=== PATIENT | female | born 1980 ===

== ENCOUNTER 2019-06-11 08:14 | Emergency (ER) | payer MEDICAID ==
[~2019-06-11] VITALS: Ht 154.9 cm; Wt 76.0 kg
[~2019-06-11 08:14] MED LIST: ALBU18HF INH; BUPR100T6 PO
--- NOTE | 2019-06-11 08:31 | NUR ---
PT PRESENTS TO ED C/O N/V/D AND ABD PAIN STARTING LAST SAT. PT STATES SHE IS UNABLE TO TOLERATE FOODS OR FLUIDS WITHOUT VOMITING. PT HAS HX OF ABD SX AND TWISTING BOWELS. PT AMBULATORY TO BATHROOM WITH STEADY GAIT FOR URINE SAMPLE. BACK TO ROOM. RESTING ON GURNEY. CALL LIGHT IN REACH. WARM BLANKET PROVIDED. AWAITING MD FOR ORDERS.
[2019-06-11] MEDS ORDERED: ONDANSETRON 2MG/ML, 2ML IVPush ONE (09:00)
[2019-06-11] MEDS ORDERED: SODIUM CHLORIDE 0.9% 1,000ML IVBOLUS ONE (09:00)
[2019-06-11] MEDS ORDERED: SODIUM CHLORIDE FLUSH 10ML SYR IVF ONE (09:00)
[2019-06-11] MEDS ORDERED: ONDANSETRON 2MG/ML, 2ML ONE (09:59)
[2019-06-11 10:06] LABS: BASOPHILS # (AUTO) 0.01 x10^3/uL (0-0.1); BASOPHILS % (AUTO) 0 % (0-1); EOSINOPHILS # (AUTO) 0.09 x10^3/uL (0-0.4); EOSINOPHILS % (AUTO) 2 % (1-7); LYMPHOCYTES # (AUTO) 1.48 x10^3/uL (1-3.4); LYMPHOCYTES % (AUTO) 28 % (22-44); MD NO; MEAN CORPUSCULAR HEMOGLOBIN 31.7 pg (27.0-34.8); MEAN CORPUSCULAR HGB CONC 33.7 g/dL (32.4-35.8); MEAN CORPUSCULAR VOLUME 94.1 fL (80-100); MONOCYTES # (AUTO) 0.29 x10^3/uL (0.2-0.8); MONOCYTES % (AUTO) 6 % (2-9); NEUTROPHILS # (AUTO) 3.39 x10^3/uL (1.8-6.8); NEUTROPHILS % (AUTO) 64 % (42-75); PLATELET COUNT 226 x10^3/uL (130-400); RED BLOOD COUNT 5.06 x10^6/uL (3.82-5.3); RED CELL DISTRIBUTION WIDTH 13.1 % (9.6-15.2)
[2019-06-11 10:16] LABS: ALANINE AMINOTRANSFERASE 24 U/L (12-78); ALBUMIN 4.3 g/dL (3.4-5.0); ANION GAP 7 mmol/L (5-15); CALCIUM 8.2 mg/dL (8.5-10.1); CHLORIDE 106 mmol/L (98-107)
[2019-06-11 10:18] LABS: ALKALINE PHOSPHATASE 109 U/L (45-117); BILIRUBIN,TOTAL 0.5 mg/dL (0.2-1.0); TOTAL PROTEIN 8.4 g/dL (6.4-8.2)
[2019-06-11 10:53] LABS: MICROSCOPIC INDICATED
[2019-06-11 10:59] LABS: HCG UR SG 1.032 (1.003-1.030)
[2019-06-11 11:09] LABS: CULTURE INDICATED? NO
[2019-06-11] MEDS ORDERED: KETOROLAC 30 MG/1 ML ONE (11:17)
[2019-06-11] MEDS ORDERED: KETOROLAC 30 MG/1 ML IVPush ONE (11:30)
--- NOTE | 2019-06-11 12:03 | NUR ---
RECEIVED REPORT FROM AUDREY MARIO. ASSUMING CARE AT THIS TIME.
[2019-06-11 12:06] VITALS: BP 112/77
--- NOTE | 2019-06-11 12:06 | NUR ---
PT TAKEN TO CT
[2019-06-11] MEDS ORDERED: OMNIPAQUE 350 MG/ML, 100ML BOTTLE ONE (12:29)
== END 2019-06-11 13:06 | disposition home or self-care (01) ==
LOC: ED 10:58
DX: K52.9 Noninfective gastroenteritis and colitis, unspecified (principal); Z90.49 Acquired absence of other specified parts of digestive tract
CPT/HCPCS: 36415; 74177; 80053; 81001; 81025; 83605; 85025; 96361; 96374; 96375; 99284; J1885; J2405; J7030; Q9967

== ENCOUNTER 2019-08-27 07:56 | Emergency (ER) | payer MEDICAID ==
[~2019-08-27] VITALS: Ht 157.5 cm; Wt 79.2 kg
[2019-08-27 08:13] VITALS: BP 119/79
== END 2019-08-27 09:43 | disposition home or self-care (01) ==
LOC: ED 09:00
DX: L04.0 Acute lymphadenitis of face, head and neck (principal); L01.00 Impetigo, unspecified; J45.909 Unspecified asthma, uncomplicated
CPT/HCPCS: 99283

== ENCOUNTER 2019-10-16 11:54 | Outpatient (CLI) | payer MEDICAID ==
[2019-10-16] MEDS ORDERED: FENTANYL PF 100 MCG/2ML ONE (12:29)
[2019-10-16] MEDS ORDERED: FLUMAZENIL 0.1 MG/1 ML, 5ML ONE (12:29)
[2019-10-16] MEDS ORDERED: NALOXONE 1 MG/ML, 2ML ONE (12:29)
[2019-10-16] MEDS ORDERED: MIDAZOLAM 1 MG/ML, 5ML ONE (12:29)
== END 2019-10-16 23:59 | disposition home or self-care (01) ==
LOC: RAD 11:54
PROVIDERS: ATTEND Physical Medicine & Rehabilitation
DX: M50.30 Other cervical disc degeneration, unspecified cervical region (principal); Z79.1 Long term (current) use of non-steroidal anti-inflammatories (NSAID); Z88.5 Allergy status to narcotic agent
CPT/HCPCS: 72141; 99156; 99157; J2250; J3010; J2310

== ENCOUNTER 2019-12-28 21:26 | Emergency (ER) | payer MEDICAID ==
[~2019-12-28] VITALS: Ht 154.9 cm; Wt 83.8 kg
[2019-12-28] MEDS ORDERED: HYDROmorphone 1 MG/ML, 1ML INJ ONE (21:48)
[2019-12-28] MEDS ORDERED: ONDANSETRON 2MG/ML, 2ML ONE ×2 (21:48→22:36)
--- NOTE | 2019-12-28 21:57 | NUR ---
PT TO ED WITH C/O OF PELVIC PAIN, LLQ AND PERIUMBILICAL REGIONS, ALSO DIZZINESS AND NAUSEA STARTING APPX 2 HOURS AGO. REPORTS LAST MENSTRATION DECEMBER 13, 2019. PT HAS HX OF OVARIAN CYSTS. ERP IN ROOM TO EVAL PT. PT PLACED ON MONITORING, CALL LIGHT WITHIN REACH, ALL SAFETY MEASURES IN PLACE.
[2019-12-28] MEDS ORDERED: SODIUM CHLORIDE FLUSH 10ML SYR IVF ONE (22:00)
[2019-12-28] MEDS ORDERED: HYDROmorphone 2 MG/ML, 1ML IVPush PRN (22:00)
[2019-12-28] MEDS ORDERED: ONDANSETRON 2MG/ML, 2ML IVPush ONE ×2 (22:00→23:00)
--- NOTE | 2019-12-28 22:07 | NUR ---
PT PLACED ON 2L NC AT THIS TIME TO MAINTAIN SPO2 SAT. PT UPDATED ON POC, REPORTS DECREASED PAIN TO 2/10. NO FURTHER NEEDS AT THIS TIME. CALL LIGHT WITHIN REACH, ALL SAFETY MEASURES IN PLACE.
[2019-12-28 22:17] LABS: MICROSCOPIC NOT IND
[2019-12-28 22:18] LABS: BASOPHILS # (AUTO) 0.03 x10^3/uL (0-0.1); BASOPHILS % (AUTO) 0 % (0-1); EOSINOPHILS # (AUTO) 0.27 x10^3/uL (0-0.4); EOSINOPHILS % (AUTO) 3 % (1-7); LYMPHOCYTES # (AUTO) 3.42 x10^3/uL (1-3.4); LYMPHOCYTES % (AUTO) 38 % (22-44); MD NO; MEAN CORPUSCULAR HGB CONC 33.2 g/dL (32.4-35.8); MEAN PLATELET VOLUME 7.7 fL (7.4-10.4); MONOCYTES # (AUTO) 0.49 x10^3/uL (0.2-0.8); MONOCYTES % (AUTO) 5 % (2-9); NEUTROPHILS % (AUTO) 54 % (42-75); PLATELET COUNT 306 x10^3/uL (130-400); RED BLOOD COUNT 4.59 x10^6/uL (3.82-5.3); RED CELL DISTRIBUTION WIDTH 13.1 % (9.6-15.2)
[2019-12-28 22:25] LABS: ALBUMIN 3.6 g/dL (3.4-5.0); ANION GAP 6 mmol/L (5-15); CALCIUM 8.7 mg/dL (8.5-10.1); CHLORIDE 104 mmol/L (98-107); CREATININE 0.98 mg/dL (0.55-1.02)
[2019-12-28 22:40] VITALS: BP 115/71
--- NOTE | 2019-12-28 22:40 | NUR ---
PT REPORTS CONTINED NAUSEA, MEDICATED PER OCT. NC D/C'D, PT RESTING ON GURNEY WITH FAMILY AT BS. CALL LIGHT WITHIN REACH, ALL SAFETY MEASURES IN PLACE.
== END 2019-12-28 23:01 | disposition home or self-care (01) ==
LOC: ED 22:10
DX: R10.30 Lower abdominal pain, unspecified (principal); R11.0 Nausea; J45.909 Unspecified asthma, uncomplicated; Z90.89 Acquired absence of other organs
CPT/HCPCS: 36415; 76830; 80048; 81003; 82040; 84703; 85025; 96374; 96375; 96376; 99284; J1170; J2405

== ENCOUNTER 2020-01-02 19:53 | Emergency (ER) | payer MEDICAID ==
[~2020-01-02] VITALS: Ht 154.9 cm; Wt 82.2 kg
[2020-01-02] MEDS ORDERED: LIDOCAINE-MPF 1%, 5ML ONE (20:04)
[2020-01-02 20:18] VITALS: BP 101/73
--- NOTE | 2020-01-02 20:21 | NUR ---
PT NUMBED UP, WOUND IRRIGATED. READY FOR SUTURES
[2020-01-02] MEDS ORDERED: NEOSPORIN OINT. PKT 1 PACKET ONE (20:41)
--- NOTE | 2020-01-02 20:52 | NUR ---
ABBIE AND DRESSING APPLED.
== END 2020-01-02 20:54 | disposition home or self-care (01) ==
LOC: ED 20:32
DX: S61.211A Laceration without foreign body of left index finger without damage to nail, initial encounter (principal); G89.11 Acute pain due to trauma; M79.642 Pain in left hand; W26.8XXA Contact with other sharp object(s), not elsewhere classified, initial encounter; Y93.89 Activity, other specified; Y92.098 Other place in other non-institutional residence as the place of occurrence of the external cause; Y99.8 Other external cause status
CPT/HCPCS: 12041; 99284

== ENCOUNTER 2020-03-19 20:58 | Emergency (ER) | payer MEDICAID ==
[~2020-03-19] VITALS: Ht 154.9 cm; Wt 82.9 kg
--- NOTE | 2020-03-19 21:26 | NUR ---
PT AMBULATED BACK TO ROOM WITHOUT DIFFICULTY.
[2020-03-19] MEDS ORDERED: HYDROmorphone 1 MG/ML, 1ML INJ IVPush PRN (21:30)
[2020-03-19] MEDS ORDERED: KETOROLAC 30 MG/1 ML IVPush ONE (21:30)
[2020-03-19] MEDS ORDERED: HYDROmorphone 2 MG/ML, 1ML ONE (21:39)
[2020-03-19] MEDS ORDERED: KETOROLAC 30 MG/1 ML ONE (21:39)
[2020-03-19 22:02] LABS: BASOPHILS # (AUTO) 0.06 x10^3/uL (0-0.1); BASOPHILS % (AUTO) 1 % (0-1); EOSINOPHILS # (AUTO) 0.17 x10^3/uL (0-0.4); EOSINOPHILS % (AUTO) 2 % (1-7); LYMPHOCYTES # (AUTO) 3.38 x10^3/uL (1-3.4); LYMPHOCYTES % (AUTO) 36 % (22-44); MD NO; MEAN CORPUSCULAR HGB CONC 33.6 g/dL (32.4-35.8); MEAN PLATELET VOLUME 8.2 fL (7.4-10.4); MONOCYTES # (AUTO) 0.56 x10^3/uL (0.2-0.8); MONOCYTES % (AUTO) 6 % (2-9); NEUTROPHILS # (AUTO) 5.19 x10^3/uL (1.8-6.8); NEUTROPHILS % (AUTO) 56 % (42-75); PLATELET COUNT 303 x10^3/uL (130-400); RED BLOOD COUNT 4.11 x10^6/uL (3.82-5.3)
[2020-03-19 22:11] LABS: ALBUMIN 3.5 g/dL (3.4-5.0); ANION GAP 7 mmol/L (5-15); CHLORIDE 109 mmol/L (98-107)
[2020-03-19 22:17] LABS: ALANINE AMINOTRANSFERASE 28 U/L (12-78); ALKALINE PHOSPHATASE 95 U/L (45-117); BILIRUBIN,TOTAL 0.3 mg/dL (0.2-1.0); CREATININE 1.02 mg/dL (0.55-1.02)
--- NOTE | 2020-03-19 22:17 | NUR ---
CT PENDING BETA.
[2020-03-19 22:18] LABS: MICROSCOPIC NOT IND
--- NOTE | 2020-03-19 22:55 | NUR ---
PT TO CT VIA [facility].
--- NOTE | 2020-03-19 23:33 | NUR ---
PT RESTING IN [place]. STATES FLANK PAIN IMPROVED AFTER MEDS. AWAITING CT RESULTS.
--- NOTE | 2020-03-20 | NUR ---
REPORTED TO LEVON MARIO.
[2020-03-20 00:38] VITALS: BP 99/63
== END 2020-03-20 00:55 | disposition home or self-care (01) ==
LOC: ED 23:08
DX: R10.32 Left lower quadrant pain (principal); J45.909 Unspecified asthma, uncomplicated; Z90.89 Acquired absence of other organs; Z90.49 Acquired absence of other specified parts of digestive tract; N20.0 Calculus of kidney
CPT/HCPCS: 36415; 74176; 76830; 80053; 81003; 83690; 84703; 85025; 96374; 96375; 99285; J1170; J1885

== ENCOUNTER 2021-04-22 02:29 | Emergency (ER) | payer MEDICAID ==
[~2021-04-22] VITALS: Ht 154.9 cm; Wt 84.2 kg
[~2021-04-22 02:29] MED LIST changes: +IBUP-1222 PO; +OXYC1TAB12 PO; +OXYcodone/APAP 5/325MG PO
[2021-04-22] MEDS ORDERED: DEXAMETHASONE 4 MG TABLET PO ONE (03:00)
[2021-04-22] MEDS ORDERED: ALBUTEROL/IPRATROPIUM 2.5MG/0.5MG, 3 ML NPPB ONE (03:00)
[2021-04-22] MEDS ORDERED: DEXAMETHASONE 4 MG TABLET ONE (03:18)
[2021-04-22] MEDS ORDERED: ALBUTEROL/IPRATROPIUM 2.5MG/0.5MG, 3 ML ONE (03:19)
[2021-04-22 04:51] VITALS: BP 105/66
--- NOTE | 2021-04-22 05:30 | NUR ---
Patient given discharge instructions and they have confirmed that they understand the instructions. Patient ambulatory with steady gait. NAD, all questions answered appropriately, denies additional needs at this time. No personal belongings left in room after discharge.
== END 2021-04-22 05:40 | disposition home or self-care (01) ==
LOC: ED 05:16
DX: J45.41 Moderate persistent asthma with (acute) exacerbation (principal); J04.0 Acute laryngitis; R94.31 Abnormal electrocardiogram [ECG] [EKG]; Z90.89 Acquired absence of other organs; Z90.49 Acquired absence of other specified parts of digestive tract
CPT/HCPCS: 70360; 71045; 93005; 94640; 99284

== ENCOUNTER 2021-04-27 20:01 | Emergency (ER) | payer MEDICAID ==
[~2021-04-27] VITALS: Ht 154.9 cm; Wt 84.0 kg
[2021-04-27] MEDS ORDERED: ALBUTEROL/IPRATROPIUM 2.5MG/0.5MG, 3 ML ONE (20:34)
[2021-04-27] MEDS ORDERED: methylPREDNISolone SOD SUCC 125 MG/2 ML ONE (20:56)
[2021-04-27] MEDS ORDERED: ALBUTEROL SULFATE 2.5 MG/3 ML ONE (20:57)
[2021-04-27] MEDS ORDERED: methylPREDNISolone SOD SUCC 125 MG/2 ML IM SCH (21:00)
[2021-04-27] MEDS ORDERED: ALBUTEROL SULFATE 2.5 MG/3 ML NPPB ONE (21:00)
--- NOTE | 2021-04-27 22:41 | NUR ---
REPORT TO ABA MARIO
[2021-04-27 23:46] VITALS: BP 117/79
== END 2021-04-27 23:46 | disposition home or self-care (01) ==
LOC: ED 21:59
DX: R06.00 Dyspnea, unspecified (principal); J45.909 Unspecified asthma, uncomplicated
CPT/HCPCS: 70360; 94640; 96372; 99283; J2930; J7613